=== PATIENT | female | born 1945 | race Caucasian/White ===

== ENCOUNTER 2017-08-17 09:40 | Emergency (ER) | payer OTHER, MEDICAID ==
[~2017-08-17] VITALS: Ht 154.9 cm; Wt 52.6 kg
[2017-08-17 09:47] VITALS: BP 125/78
== END 2017-08-17 11:43 | disposition home or self-care (01) ==
LOC: ED 09:40
DX: J45.909 Unspecified asthma, uncomplicated (principal); J06.9 Acute upper respiratory infection, unspecified
CPT/HCPCS: J7512; J7613

== ENCOUNTER 2017-08-18 21:34 | Emergency (ER) | payer OTHER, MEDICAID ==
[~2017-08-18] VITALS: Ht 152.4 cm; Wt 52.6 kg
[2017-08-18 21:55] VITALS: Ht 152.4 cm; Wt 52.6 kg
[2017-08-18 23:07] LABS: BASOPHIL % 0.4 % (0-2); PLATELET COUNT 225 x10^3mcL (130-400); RED CELL DISTRIBUTION WIDTH 12.3 % (11.5-14.5)
[2017-08-18 23:16] LABS: CALCIUM 9.2 mg/dL (8.5-10.1); CARBON DIOXIDE 28.3 mmol/L (21-32); CHLORIDE SERUM 98 mmol/L (98-107); CREATININE SERUM 0.7 mg/dL (0.6-1.0); GLUCOSE SERUM 94 mg/dL (74-106); POTASSIUM SERUM 3.9 mmol/L (3.5-5.1); SODIUM SERUM 132 mmol/L (136-145)
[2017-08-18 23:21] LABS: ALBUMIN 3.6 g/dL (3.4-5.0); ALKALINE PHOSPHATASE 105 U/L (46-116); ALT/SGPT 27 U/L (14-59); AST/SGOT 17 U/L (15-37); BILIRUBIN TOTAL 0.5 mg/dL (0.20-1.00); CHOLESTEROL 142 mg/dL (<200); HDL CHOLESTEROL 79 mg/dL (40-60); TOTAL PROTEIN, SERUM 7.3 g/dL (6.4-8.2)
[2017-08-19 02:04] VITALS: BP 139/94
== END 2017-08-19 02:04 | disposition home or self-care (01) ==
LOC: ED 21:34
PROVIDERS: Emergency Medicine
DX: J04.0 Acute laryngitis (principal); I10 Essential (primary) hypertension; Z88.5 Allergy status to narcotic agent; Z88.6 Allergy status to analgesic agent
CPT/HCPCS: 83880; 87804; J1100